=== PATIENT | male | born 1955 | race Caucasian/White ===

== ENCOUNTER 2025-02-24 21:55 | Observation (INO) | payer MEDICARE ==
[~2025-02-24] VITALS: Ht 185.4 cm; Wt 141.6 kg
[2025-02-24 22:15] LABS: VENOUS BASE EXCESS -2.0 (-2.0-2.0); VENOUS HCO3 26.2 MMOL/L (23.0-27.0); VENOUS O2 SATURATION 65.0 % (60.0-80.0); VENOUS PARTIAL PRESSURE CO2 59.5 mmHg (38.0-50.0); VENOUS PARTIAL PRESSURE O2 39.0 mmHg (30.0-50.0); VENOUS PH 7.262 UNITS (7.330-7.430); VENOUS STANDARD HCO3 22.0 MMOL/L; VENOUS TOTAL CO2 28.0 MMOL/L (24.0-28.0)
[2025-02-24 22:27] LABS: BASO # 0.1 10^3/uL (0.0-0.2); BASO % 0.4 % (0.0-1.0); EOS # 0.2 10^3/uL (0.0-0.5); EOS % 0.9 % (0.0-3.0); LYMPH # 1.8 10^3/uL (1.5-5.0); LYMPH % 10.1 % (24.0-44.0); MONO # 1.6 10^3/uL (0.0-0.8); MONO % 8.8 % (2.0-8.0); NEUTROPHILS # 14.3 10^3/uL (1.5-8.5); NEUTROPHILS % 79.1 % (36.0-66.0); PLATELET COUNT, AUTOMATED 205 10^3/uL (150-450)
[2025-02-24 22:41] LABS: INR 0.94
[2025-02-24 22:48] LABS: ETHYL ALCOHOL (ETHANOL) 0.149 % (0.000-0.010)
[2025-02-24 22:49] LABS: ALT/SGPT 63.0 U/L (7.0-40); AST/SGOT 65.0 U/L (<34); CALCIUM LEVEL 8.0 MG/DL (8.3-10.6); CARBON DIOXIDE LEVEL 28.0 MMOL/L (20-31); CHLORIDE LEVEL 104.0 MMOL/L (98-107); CPK CREATINE PHOSPHOKINASE 1037.0 U/L (46-171); CREATININE FOR GFR 1.52 MG/DL (0.70-1.30); GLOMERULAR FILTRATION RATE 49.6 (>49); POTASSIUM SERUM 5.0 MMOL/L (3.5-5.1); SODIUM LEVEL 141.0 MMOL/L (136-145)
[2025-02-24] MEDS ORDERED: ISOVUE-370 76% 100 ML VIAL As Ordered ONE (22:55)
[2025-02-24 23:04] LABS: CK-MB VALUE MASS 26.6 NG/ML (<3.6); MB/CK RELATIVE INDEX 2.56 (< OR =4)
[2025-02-25 02:37] VITALS: BP 114/65; TEMP 97.9; O2SAT 96
[2025-02-25] MEDS: MORPHINE 4 MG/ML 1 ML VIAL IV PRN (03:46)
[2025-02-25] MEDS: NS (Normal Saline) 0.9% 1,000 ML IV SCH (04:08)
[2025-02-25] MEDS ORDERED: AMLO1TAB24 PO (04:36)
[2025-02-25] MEDS ORDERED: LISI10TA22 PO (04:36)
[2025-02-25] MEDS ORDERED: ASPI81TA26 PO (04:36)
[2025-02-25] MEDS ORDERED: THERTAB52 PO (04:36)
[2025-02-25] MEDS ORDERED: D 50CAP2 PO (04:36)
[2025-02-25] MEDS ORDERED: ATOR1TAB19 PO (04:36)
[2025-02-25] MEDS ORDERED: METF-838 PO (04:36)
[2025-02-25] MEDS ORDERED: HOME MED LIST COMPLETE! XX SCH (04:40)
[2025-02-25] MEDS: KETOROLAC 30 MG/ML 1 ML VIAL IV PRN (05:00)
[2025-02-25 12:00] VITALS: BP 143/73; TEMP 99.3; O2SAT 97
[2025-02-25] MEDS: PERCOCET 5MG/325MG TAB PO PRN (12:47)
[2025-02-25 15:36] VITALS: O2SAT 94
[2025-02-25 17:22] VITALS: BP 170/88; TEMP 98.4; O2SAT 95
[2025-02-25 19:42] VITALS: BP 109/69; TEMP 98.8; O2SAT 92
[2025-02-26 03:53] VITALS: BP 149/67; TEMP 98.8; O2SAT 94
[2025-02-26 08:17] LABS: PLATELET COUNT, AUTOMATED 180 10^3/uL (150-450)
[2025-02-26 08:43] LABS: CALCIUM LEVEL 8.0 MG/DL (8.3-10.6); CARBON DIOXIDE LEVEL 25.0 MMOL/L (20-31); CHLORIDE LEVEL 107.0 MMOL/L (98-107); CREATININE FOR GFR 1.04 MG/DL (0.70-1.30); GLOMERULAR FILTRATION RATE 78.2 (>49); POTASSIUM SERUM 4.4 MMOL/L (3.5-5.1); SODIUM LEVEL 145.0 MMOL/L (136-145)
[2025-02-26 12:00] VITALS: BP_SYST 159; BP_SYST 164; BP_DIAS 85; TEMP 97.5; O2SAT 97
[2025-02-26 19:57] VITALS: BP 140/68; TEMP 100.1; O2SAT 90
[2025-02-27 04:01] VITALS: BP 158/82; TEMP 100.2; O2SAT 93
[2025-02-27 04:44] VITALS: O2SAT 95
[2025-02-27] MEDS: PERCOCET 5MG/325MG TAB PO PRN (04:44)
[2025-02-27 05:31] VITALS: TEMP 99.7
[2025-02-27 08:31] VITALS: TEMP 98.5
[2025-02-27] MEDS ORDERED: PERCOCET PO (09:41)
[2025-02-27] MEDS ORDERED: IBUP600T42 PO (09:43)
[2025-02-27] MEDS ORDERED: OXYC10TA3 PO (16:41)
== END 2025-02-27 12:06 | disposition home or self-care (01) ==
LOC: EDBD 21:55 → M ED 21:55 → M ED INP 21:56 → M MSPAV 02-25 02:27
PROVIDERS: ADMIT Surgery; ATTEND Surgery
DX: S22.41XA Multiple fractures of ribs, right side, initial encounter for closed fracture (principal); S37.011A Minor contusion of right kidney, initial encounter; S50.812A Abrasion of left forearm, initial encounter; S80.212A Abrasion, left knee, initial encounter; R07.81 Pleurodynia; R10.A1 Flank pain, right side; V86.59XA Driver of other special all-terrain or other off-road motor vehicle injured in nontraffic accident, initial encounter; Y92.9 Unspecified place or not applicable; R71.0 Precipitous drop in hematocrit; R06.02 Shortness of breath; I10 Essential (primary) hypertension; I25.10 Atherosclerotic heart disease of native coronary artery without angina pectoris; E78.00 Pure hypercholesterolemia, unspecified; E11.9 Type 2 diabetes mellitus without complications; Z79.899 Other long term (current) drug therapy; Z79.82 Long term (current) use of aspirin; Z79.84 Long term (current) use of oral hypoglycemic drugs
CPT/HCPCS: 36415; 70450; 71045; 71260; 72125; 72128; 72131; 74177; 80048; 80076; 82077; 82150; 82550; 82553; 82803; 83605; 83690; 84484; 85025; 85027; 85610; 85730; 86850; 86900; 86901; 93005; 94760; 96365; 96366; 96375; 96376; 99291; G0378; J1885; Q9967